=== PATIENT | female | born 1995 | race Caucasian/White ===

== ENCOUNTER 2016-06-20 12:31 | Outpatient (CLI) | payer MEDICAID ==
[~2016-06-20] VITALS: Ht 157.5 cm; Wt 66.5 kg
[~2016-06-20 12:31] MED LIST: FERR325C PO; PREN-92 PO
[2016-06-20] MEDS ORDERED: BETAMETHASONE 6mg/ml INJECTION IM SCH (12:45)
[2016-06-20 13:05] LABS: HCT - HEMATOCRIT 26.9 % (36-46); HGB - HEMOGLOBIN 8.3 GM/DL (12-16); MEAN CORPUSCULAR HGB 25.2 UUG (26-34); MEAN CORPUSCULAR HGB CONC(MCHC 30.9 GM/DL (31-37); MEAN CORPUSCULAR VOLUME 81.5 UM3 (80-100); MEAN PLATELET VOLUME 10.5 UM3 (9.4-12.4); RED BLOOD COUNT 3.3 M/MM3 (4.00-5.20); WBC - WHITE BLOOD COUNT 8.7 T/MM3 (4.5-11.0)
[2016-06-20] MEDS ORDERED: AZIT1PAC PO (13:13)
[2016-06-20] MEDS ORDERED: ACET-62 PO (13:14)
[2016-06-20 13:15] VITALS: Ht 157.5 cm; Wt 66.5 kg
[2016-06-20 15:58] LABS: GROUP B STREP BY PCR NEGATIVE (NEGATIVE)
[2016-06-20] MEDS ORDERED: ACYCLOVIR 200 MG CAPSULE PO SCH (17:00)
--- NOTE | 2016-06-20 17:06 | PNPDOC ---
RELEASE ENGINEER Progress Note Subjective Today's Date 06/20/16 at 34w0d sent over from clinic for possible placental abruption seen on sono. No VB for 2 days. Good FM. Objective General: Alert and Oriented Abdomen: Soft, Non-distended Laboratory Item Value Date Time Hemoglobin 8.3 GM/DL L 06/20/16 1247 Platelet Count 242 T/MM3 06/20/16 1247 Group B Streptococcus (PCR) Negative 06/20/16 1417 Blood Type O POSITIVE 06/20/16 1247 Antibody Screen NEGATIVE 06/20/16 1247 (1) 34 weeks gestation of (2) Placental abruption in third trimester Assessment & Plan: First betamethasone given. Start induction after second dose. Due to staffing issues, we are unable to safely take care of her here. Will transport to [place]. I contacted Dr. Wiggins, and he accepted the transport. Questions answered. (3) Chronic anemia Assessment & Plan: Iron (4) HSV infection Assessment & Plan: Asymptomatic. On acyclovir for suppression. URSZULA MARTIN MD Jun 20, 2016 17:05
--- NOTE | 2016-06-20 17:27 | NUR ---
Transfer Pt transferred by EMS to [facility] in stable condition. Report given to ISABEL Tomas.
== END 2016-06-20 17:27 | disposition short-term general hospital (02) ==
LOC: MC 12:31 → OBOBS 12:31
PROVIDERS: ATTEND Obstetrics & Gynecology
DX: O45.93 Premature separation of placenta, unspecified, third trimester (principal); O99.013 Anemia complicating pregnancy, third trimester; D50.9 Iron deficiency anemia, unspecified; O98.513 Other viral diseases complicating pregnancy, third trimester; B00.9 Herpesviral infection, unspecified; Z3A.34 34 weeks gestation of pregnancy
CPT/HCPCS: 36415; 59025; 85027; 86850; 86900; 86901; 87653; J0702